=== PATIENT | male | born 1955 | race Caucasian/White ===

== ENCOUNTER 2024-02-06 14:39 | Emergency (ER) | payer BC, SELFPAY ==
[2024-02-06 14:41] VITALS: BP 121/74
[2024-02-06 14:53] VITALS: BP 110/71
[2024-02-06 14:59] VITALS: BMI 38.3
[2024-02-06 15:00] VITALS: BP 114/67
[2024-02-06 15:15] LABS: % Basophils 0.7 % (0-2); % Eosinophils 1.7 % (0-6); % Immature Granulocytes 0.1 % (0-0.5); % Lymphocytes 25.9 % (20.5-51.1); % Monocytes 7.2 % (1.7-9.3); % Neutrophils 64.4 % (42.2-75.2); Absolute Basophils 0.1 10^3/uL (0-0.2); Absolute Eosinophils 0.1 10^3/uL (0-0.7); Absolute Lymphocytes 1.9 10^3/uL (1.2-3.4); Absolute Monocytes 0.5 10^3/uL (0.1-0.6); Absolute Neutrophils 4.6 10^3/uL (1.4-6.5); Hematocrit 41.7 % (39.0-52.0); Hemoglobin 14.5 g/dL (13.0-18.0); Mean Corp Hgb Conc. 34.8 g/dL (33.0-37.0); Mean Corpuscular Hgb 31.5 pg (27.0-31.0); Mean Corpuscular Volume 90.7 fL (80.0-94.0); Mean Platelet Volume 9.5 fL (7.4-10.4); Nucleated Red Blood Cells % 0 % (-); Platelet Count 198 10^3/uL (130-400); Red Cell Dist. Width 12.1 % (11.5-14.5); White Blood Cell Count 7.2 10^3/uL (4.8-10.8)
[2024-02-06 15:39] LABS: Troponin I < 0.012 ng/ml
--- NOTE | 2024-02-06 15:51 | ED.GENMED ---
History of Present Illness
General
Chief Complaint: Abdominal Symptoms
Time Seen by Provider: 02/06/24 15:15
Travel History
Have you had any contact with someone who has COVID-19?: No
Do you have any symptoms of coronavirus? Fever > 100 degrees, chills, cough, shortness of breath, sore throat, loss of taste or smell, muscle aches, or headache?: No
History of Present Illness
History of Present Illness:
68 yo male w/ hx of CAD, HTN, HLD and SVT/PAF s/p ablation (currently on Eliquis) presents to the Emergency Department for evaluation of gradually worsening epigastric pain beginning 2-3 hours [employer], radiating to the neck/shoulders. Pain is dull,
states it 'feels like heartburn'. No fever, chills, sweats, N/V/D. Has not eaten since onset of pain. No prior CAD. Was sent to the ED from urgent care. No hx of abd surgeries.
Past History
Past History
ED Past Medical History: HTN and NIDDM
ED Past Surgical History: Tonsilectomy
Social History
Tobacco: Non-smoker
Alcohol: None
Personal:
Living: with family
Employment: Employed
Family History
Family History: Hypertension
Review of Systems
Review of Systems
Allergies reviewed?: Yes
All Other Systems: ROS reviewed and negative except as documented in HPI and ROS
Phy Exam
Physical Exam
Physical Exam:
GEN: Well appearing, NAD, WDWN
Eyes: PERRLA, EOMs intact, no scleral icterus
HENT: NCAT, oral mucosa moist
Lungs: CTAB, no wheezes, rales, rhonchi, normal chest wall excursion
Cardiac: RRR, no M/R/G, no peripheral edema. Radial pulses 2+ bilat
Abdomen: Soft, minimally tender to the epigastrium, no rigidity or peritoneal signs, no pulsatile mass
Neuro: AO x 3, moves all extremities freely, normal sensation to BUE/BLE
MSK: No gross deformity or ecchymosis. No edema. No digital clubbing
Skin: No rashes, petechiae. Normal color, no pallor or jaundice.
Psych: Calm, cooperative, proper hygiene
Course
Orders/Labs/Results
Orders:
Orders
02/06/24 14:40
Electrocardiogram (*1) Urgent
Reason for Study: Chest Pain
EKG- Treatment ONCE
02/06/24 15:07
Complete Blood Count/With Diff Urgent
Comprehensive Metabolic Panel Urgent
Lipase Urgent
Troponin I Urgent
Abnormal Lab Results
02/06/24
15:07
RBC 4.60 L 10^6/uL
(4.70-6.10)
MCH 31.5 H pg
(27.0-31.0)
Glucose 119 H mg/dl
(70-99)
02/06/24 15:07
02/06/24 15:07
Vital Signs
Initial and Last Documented VS:
Initial Vital Signs
Temp Pulse Resp BP Pulse Ox
98.0 F 77 16 121/74 98
02/06/24 14:41 02/06/24 14:41 02/06/24 14:41 02/06/24 14:41 02/06/24 14:41
Last Documented Vital Signs
Temp Pulse Resp BP Pulse Ox
98.0 F 77 16 121/74 98
02/06/24 14:41 02/06/24 14:41 02/06/24 14:41 02/06/24 14:41 02/06/24 14:41
MDM/Problems Addressed
MDM/Problems Addressed:
Patient's pain resolved while in the emergency department. Low suspicion for pulm embolism given use of Eliquis. Did consider diagnosis of thoracic aortic dissection however lack of neurologic symptoms and gradual worsening of symptoms is
reassuring against this. Additionally he is not hypertensive. Considered abdominal pathology versus acute coronary syndrome, EKG is nonischemic and troponin. I discussed with the patient the need for repeat troponin testing given the acute onset
of his symptoms however he declines requesting to be discharged hospital. Verbalized understanding of all risk of not pursuing further cardiac rule out, will refer him to cardiology to the chest pain hotline to facilitate close outpatient
follow-up. Symptoms may have been an acute presentation of GERD hence the rapid resolution upon arrival to the ER and the normal workup otherwise
*Critical Care Note
Total Time (30-74mins, 75-104mins- exclusive of procedures): Not Applicable
ED Attending Note
-
Portions of this chart may have been created with voice recognition software.� Occasional wrong word or��sound alike� substitutions may have occurred due to the inherent limitations of voice recognition software.
Discharge Plan
Departure
Patient Disposition: Home (Routine Discharge)
Date of Disposition: 02/06/24
Time of Disposition: 16:51
Patient with high blood pressure during this ER visit?: No
Discharge Problem:
Acute upper abdominal pain
Instructions: Chest Pain DCA Follow Up
Prescriptions:
No Action
lisinopril 10 MG tablet
10 mg PO QPM
finasteride 5 MG tablet
5 mg PO DAILY
cholecalciferol (vitamin D3) [Vitamin D3] 125 mcg (5,000 unit) Tablet
125 mcg PO Q48H
Patient Comments:
'haven't taken in a few weeks'
Eliquis 5 mg Tablet
5 mg PO BID
fluticasone propionate 50 mcg/actuation [place],Suspension
2 spray INTRANASAL DAILY PRN (Reason: allergies)
metoprolol succinate 100 mg Tablet Extended Release 24 Hr
100 mg PO BID
levofloxacin 500 mg tablet
500 mg PO DAILY Qty: 9 0RF
sulfamethoxazole-trimethoprim [Bactrim DS] 800-160 mg tablet
1 tab PO BID Qty: 20 0RF
Referrals:
Diamante Morelos MD [Family Provider] -
Activity Restrictions/Additional Instructions:
We discussed the risk of discharging before doing a repeat cardiac troponin test however you have requested to be discharged. Given that you have no symptoms this is not unreasonable however if symptoms recur please do not hesitate to return to the
emergency department. You should hear back from your branch officer within the next few days to schedule an outpatient follow-up
Interventions
Interventions:
*Risk Screen - Suicide Last Done: 02/06/24 14:59
*General Assessment Last Done: 02/06/24 14:59
*Neglect/Abuse Screening Last Done: 02/06/24 14:59
ED- Fall Risk Assessment Last Done: 02/06/24 15:12
*ED COVID-19 Vaccine History Last Done: 02/06/24 14:41
BA-Uzbtnm-Dwugvpvzol Assessment Last Done: 02/06/24 15:12
Discharge Date and Time
Print Language: RWANDAN
[2024-02-06 16:00] VITALS: BP 109/66
[2024-02-06 16:44] LABS: ALT (SGPT) 24 U/L (0-50); AST (SGOT) 26 U/L (17-59); Albumin 4.1 g/dl (3.5-5.0); Alkaline Phosphatase 78 U/L (38-126); Blood Urea Nitrogen 18 mg/dl (9-20); Calcium 9.8 mg/dl (8.4-10.2); Carbon Dioxide 29 mmol/L (22-30); Chloride 101 mmol/L (98-107); Estimated Creatinine Clearance > 125 ml/min; Glucose 119 mg/dl (70-99); Lipase 172 U/L (23-300); Potassium 3.6 mmol/L (3.5-5.1); Sodium 138 mmol/L (135-145); Total Bilirubin 0.7 mg/dl (0.2-1.3); Total Protein 6.9 g/dl (6.3-8.2); eGFR > 60.00
== END 2024-02-06 17:03 | disposition home or self-care (01) ==
LOC: EMR 14:39
PROVIDERS: Emergency Medicine; EMERGENCY PHYSICIAN Emergency Medicine; FAMILY PHYSICIAN Family Medicine
DX: R10.13 Epigastric pain (principal); M54.2 Cervicalgia; M25.512 Pain in left shoulder; M25.511 Pain in right shoulder; R07.9 Chest pain, unspecified; I48.0 Paroxysmal atrial fibrillation; E78.5 Hyperlipidemia, unspecified; I10 Essential (primary) hypertension; I25.10 Atherosclerotic heart disease of native coronary artery without angina pectoris; E11.9 Type 2 diabetes mellitus without complications; Z79.01 Long term (current) use of anticoagulants; Z91.048 Other nonmedicinal substance allergy status
CPT/HCPCS: 99283; 80053; 83690; 84484; 85025; 93005

== ENCOUNTER → 2024-03-08 14:56 | Outpatient (REF) | payer BC, SELFPAY | LOC: RCS 14:56 | PROVIDERS: ATTENDING PHYSICIAN Internal Medicine Interventional Cardiology; FAMILY PHYSICIAN Family Medicine | DX: I10 Essential (primary) hypertension (principal); I77.810 Thoracic aortic ectasia | CPT/HCPCS: 93306 ==

== ENCOUNTER → 2025-07-06 07:38 | Outpatient (REF) | payer BC, SELFPAY | LOC: HWRCS 07:38 | PROVIDERS: ATTENDING PHYSICIAN Internal Medicine Cardiovascular Disease; FAMILY PHYSICIAN Family Medicine | DX: I48.0 Paroxysmal atrial fibrillation (principal) | CPT/HCPCS: 78452; 93017; A9500; J2785 ==